=== PATIENT | male | born 1965 | race Caucasian/White ===

== ENCOUNTER 2022-07-07 07:46 | Day surgery (SDC) | payer BC ==
[2022-07-07] MEDS ORDERED: Lactated Ringers 1,000 ML IV SCH (08:30)
[2022-07-07] MEDS ORDERED: fentaNYL 100 MCG/2 ML SDV ONE (09:06)
[2022-07-07] MEDS ORDERED: Midazolam 1 MG/ML 2 ML SDV ONE (09:06)
[2022-07-07] MEDS ORDERED: Propofol 200 MG/20 ML SDV ONE ×2 (09:06→09:08)
[2022-07-07] MEDS ORDERED: Glycopyrrolate 0.2 MG/ML 2 ML SDV ONE (09:22)
== END 2022-07-07 10:45 | disposition home or self-care (01) ==
LOC: JP.SDS 07:46
PROVIDERS: ATTEND Family Medicine
DX: Z12.11 Encounter for screening for malignant neoplasm of colon (principal); D12.2 Benign neoplasm of ascending colon; E78.5 Hyperlipidemia, unspecified; C61 Malignant neoplasm of prostate
CPT/HCPCS: 45380; 88305; J2250; J2704; J3010; J3490; J7120